=== PATIENT | male | born 1950 | race Caucasian/White ===

== ENCOUNTER → 2018-08-20 | Outpatient (CLI) | payer BC | LOC: COL.RAD 08:01 | DX: Z13.6 Encounter for screening for cardiovascular disorders (principal); K44.9 Diaphragmatic hernia without obstruction or gangrene; K22.8 Other specified diseases of esophagus ==

== ENCOUNTER 2018-09-17 14:44 | Outpatient (RCR) | payer MEDICARE, BC | END 2018-12-16 | disposition home or self-care (01) | LOC: WSST | DX: R13.12 Dysphagia, oropharyngeal phase (principal) | CPT/HCPCS: G8996-GN; G8997-GN ==

== ENCOUNTER 2021-12-14 10:34 | Day surgery (SDC) | payer BC ==
[2005-10-18 06:25] VITALS: BP 115/65
[~2021-12-14] VITALS: Ht 171.4 cm; Wt 78.8 kg
[2021-12-14 11:12] VITALS: BP 131/80; PULSE 74; TEMP 96.8
[2021-12-14] MEDS ORDERED: FLONASEALLERGY NS (11:17)
[2021-12-14] MEDS ORDERED: LUTEIN6 MG (11:18)
[2021-12-14] MEDS ORDERED: ASPIRIN E.C. 8181 MG PO (11:18)
[2021-12-14] MEDS ORDERED: PRAVACHOL 20MG20 MG PO (11:18)
[2021-12-14] MEDS ORDERED: VITAMIN C500 MG PO (11:19)
[2021-12-14] MEDS ORDERED: VITAMIN D31000 I1 PO (11:20)
[2021-12-14] MEDS ORDERED: [UNRECOGNIZED DRUG - OTHER] PO (11:21)
[2021-12-14] MEDS ORDERED: MULTI VITAMINS1 TAB PO (11:21)
[2021-12-14] MEDS ORDERED: PHARMASSURE ZIN50 MG PO (11:22)
[2021-12-14] MEDS ORDERED: GOOD SENSE SLEE25 M1 PO (11:22)
[2021-12-14] MEDS ORDERED: PEPCID AC 10MG10 MG PO (11:22)
[2021-12-14] MEDS ORDERED: NATURAL ST. JO300 MG PO (11:23)
[2021-12-14] MEDS ORDERED: SYSTANE BALANCE10 M1 OP (11:24)
[2021-12-14 13:28] VITALS: BP 118/77; PULSE 66; TEMP 97.3
[2021-12-14] MEDS ORDERED: MOTRIN 600600 MG/TAB PO (13:37)
[2021-12-14] MEDS ORDERED: NORCO 325 MG-51 TAB PO (13:37)
[2021-12-14 13:43] VITALS: BP 118/75; PULSE 64
--- NOTE | 2021-12-14 13:55 | NUR ---
1328 PT RETURNED VIA CART TO BAY 8. ALERT AND ORIENTED. POSTOP VITALS STARTED. OPERATIVE SITE CLEAN DRY AND WELL APPROXIMATED. PT ALLOWED TO REST. 1343 VITALS STABLE. PT DENIES PAIN OR NAUSEA. ORANGE JUICE AND PUDDING PROVIDED. SADA TO BEDSIDE. 1347 VITALS STABLE. PT TOLERATING FOOD AND DRINK WELL. DENIES PAIN OR NAUSEA. 1355 IV REMOVED WITHOUT COMPLICATION. DISCHARGE INSTRUCTIONS AND EDUCATION MATERIAL REVIEWED, ANSWERED QUESTIONS TO PT ANS SATISFACTION. ALLOWED PT TO DRESS AND OPEN DOOR WHEN READY FOR DISCHARGE.
[2021-12-14 13:57] VITALS: BP 138/81; PULSE 63
--- NOTE | 2021-12-14 14:35 | NUR ---
TRANSFERED PT VIA WHEEL CHAIR TO PERSONAL VEHICLE TO BE DRIVEN HOME BY .
== END 2021-12-14 14:35 | disposition home or self-care (01) ==
LOC: SDCO 10:34
DX: D17.0 Benign lipomatous neoplasm of skin and subcutaneous tissue of head, face and neck (principal); E78.00 Pure hypercholesterolemia, unspecified; E78.5 Hyperlipidemia, unspecified; Z79.899 Other long term (current) drug therapy
CPT/HCPCS: J0690; J2704; J3010; J7120

== ENCOUNTER 2022-03-19 11:43 | Emergency (ER) | payer OTHER, BC ==
[~2022-03-19] VITALS: Ht 170.2 cm; Wt 81.8 kg
[~2022-03-19 11:43] MED LIST: ASPIRIN E.C. 8181 MG PO; FLONASEALLERGY NS; GOOD SENSE SLEE25 M1 PO; LUTEIN6 MG; MOTRIN 600600 MG/TAB PO; MULTI VITAMINS1 TAB PO; NATURAL ST. JO300 MG PO; NORCO 325 MG-51 TAB PO; PEPCID AC 10MG10 MG PO; PHARMASSURE ZIN50 MG PO; PRAVACHOL 20MG20 MG PO; SYSTANE BALANCE10 M1 OP; VITAMIN C500 MG PO; VITAMIN D31000 I1 PO; [UNRECOGNIZED DRUG - OTHER] PO
[2022-03-19] MEDS ORDERED: VITAMINC1000TA (12:06)
[2022-03-19 12:28] LABS: BASO # 0.1 K/mm3 (0.0-0.2); BASO % 1.4 % (0.0-2.0); EOS # 0.3 K/mm3 (0.0-0.7); EOS % 3.6 % (0.0-4.0); GRAN # 3.8 K/mm3 (1.4-6.5); GRAN % 53.1 % (42.2-75.2); HEMATOCRIT 41.1 % (42.0-52.0); HEMOGLOBIN 14.5 g/dl (13.5-18.0); LYMPH # 2.2 K/mm3 (1.2-3.4); LYMPH % 30.8 % (20.0-51.0); MEAN CELL VOLUME 88 fl (80.0-100.0); MEAN CORPUSCULAR HEMOGLOBIN 31 pg (27-31); MEAN CORPUSCULAR HGB CONC 35 g/dl (33.0-37.0); MONO # 0.8 K/mm3 (0.1-0.6); PLATELET COUNT 223 K/mm3 (130-400); RED BLOOD COUNT 4.65 M/mm3 (4.20-5.60); REDCELL DISTRIBUTION WIDTH-CV 12.4 % (11.5-14.5)
[2022-03-19 12:40] VITALS: BP 141/90; PULSE 74
[2022-03-19 12:47] LABS: PROTHROMBIN TIME 11.2 SECONDS (9.7-12.8)
[2022-03-19 12:48] LABS: ALANINE AMINOTRANSFERASE 25 U/L (0-55); ALBUMIN 3.9 gm/dL (3.4-4.8); ALKALINE PHOSPHATASE 94 U/L (40-150); ANION GAP 11 mmol/L (7-16); AST,SGOT 21 U/L (5-34); BILIRUBIN,TOTAL 1.3 mg/dL (0.2-1.2); BLOOD UREA NITROGEN 16 mg/dL (8-26); CARBON DIOXIDE 19 mmol/L (23-31); CHLORIDE 112 mmol/L (98-107); CREATININE, serum 1.09 mg/dL (0.72-1.25); GLUCOSE 122 mg/dL (70-99); POTASSIUM 3.8 mmol/L (3.5-4.5); SODIUM 142 mmol/L (136-145); TOTAL PROTEIN 6.2 gm/dL (6.2-8.1)
[2022-03-19 12:49] LABS: PARTIAL THROMBOPLASTIN TIME 29.9 SECONDS (26.0-37.0)
[2022-03-19 12:59] LABS: TROPONIN-I < 0.010 ng/mL (0.00-0.033)
== END 2022-03-19 12:40 | disposition short-term general hospital (02) ==
LOC: COL.ER 11:43
PROVIDERS: Emergency Medicine
DX: I21.3 ST elevation (STEMI) myocardial infarction of unspecified site (principal); R61 Generalized hyperhidrosis; Z28.310 Unvaccinated for COVID-19
CPT/HCPCS: J1644; J2270; J2550; J3101; J7030

== ENCOUNTER 2022-04-06 14:26 | Outpatient (RCR) | payer OTHER, BC ==
[~2022-04-06 14:26] MED LIST changes: +VITAMINC1000TA
== END 2022-04-10 | disposition home or self-care (01) ==
LOC: COL.CR
DX: Z48.812 Encounter for surgical aftercare following surgery on the circulatory system (principal); Z98.61 Coronary angioplasty status; I25.2 Old myocardial infarction

== ENCOUNTER 2022-05-07 11:41 | Outpatient (RCR) | payer OTHER, BC | END 2022-05-10 | disposition home or self-care (01) | LOC: COL.CR | DX: Z48.812 Encounter for surgical aftercare following surgery on the circulatory system (principal); Z98.61 Coronary angioplasty status; I25.2 Old myocardial infarction ==

== ENCOUNTER 2022-06-08 12:12 | Outpatient (RCR) | payer BC | END 2022-06-10 | disposition home or self-care (01) | LOC: COL.CR | DX: Z48.812 Encounter for surgical aftercare following surgery on the circulatory system (principal); Z98.61 Coronary angioplasty status ==

== ENCOUNTER → 2022-07-11 | Outpatient (RCR) | payer BC | END | disposition home or self-care (01) | LOC: COL.CR | DX: Z48.812 Encounter for surgical aftercare following surgery on the circulatory system (principal); Z98.61 Coronary angioplasty status; I25.2 Old myocardial infarction ==

== ENCOUNTER 2022-07-13 12:55 | Outpatient (RCR) | payer BC | END 2022-07-18 11:56 | disposition home or self-care (01) | LOC: COL.CR 12:55 | DX: Z48.812 Encounter for surgical aftercare following surgery on the circulatory system (principal); I25.2 Old myocardial infarction ==